=== PATIENT | male | born 1945 | race Caucasian/White ===

== ENCOUNTER 2016-08-27 06:22 | Day surgery (SDC) | payer OTHER ==
[~2016-08-27] VITALS: Ht 162.6 cm; Wt 65.8 kg
[2016-08-27] MEDS ORDERED: ASPIRIN81 M1 PO (07:23)
[2016-08-27] MEDS ORDERED: MULTI-VITAMIN1 EACH PO (07:23)
[2016-08-27] MEDS ORDERED: OSCAL500 MG PO (07:23)
[2016-08-27] MEDS ORDERED: ANXIETY MED (07:23)
[2016-08-27] MEDS ORDERED: LIDOCAINE 2% 100 MG/5 ML UJET TP ONE (07:45)
[2016-08-27] MEDS ORDERED: SODIUM PHOSPHATE 118 ML ENEM RC PRN (08:35)
== END 2016-08-27 09:23 | disposition home or self-care (01) ==
LOC: MDS 06:22 → MMU 06:24 → MDS 09:23
PROVIDERS: ATTEND Internal Medicine Gastroenterology
DX: Z12.11 Encounter for screening for malignant neoplasm of colon (principal)